=== PATIENT | female | born 1985 | race Hispanic/Latino ===

== ENCOUNTER 2018-02-27 11:07 | Emergency (ER) | payer SELFPAY ==
[2018-02-27 12:51] LABS: Bilirubin Negative (Negative); Blood, Urine Negative (Negative); Clarity CLEAR (Clear); Glucose, Urine (Dipstick) Negative (Negative); Leukocyte Negative (Negative); Nitrite Negative (Negative); Protein, Urine (Dipstick) Negative (Neg-Trace); Specific Gravity, Urine 1.011 (1.002-1.036); Urobilinogen 0.2 mg/dL (0.2-1.0); pH, Urine 7.5 (5.0-9.0)
[2018-02-27 12:52] LABS: #Basophils 0.1 thou/uL (0.0-0.2); #Eosinphils 0.1 thou/uL (0.0-0.7); #Lymphocytes 1.5 thou/uL (1.20-3.40); #Monocytes 0.5 thou/uL (0.11-0.59); #Neutrophils 7.3 thou/uL (1.40-6.50); %Basophils 0.8 % (0.0-1.0); %Eosinophils 0.7 % (0.0-10.0); %Lymphocytes 15.5 % (21.0-51.0); %Monocytes 5.6 % (0.0-10.0); %Neutrophils 77.4 % (42.0-75.0); Hemoglobin 13.5 g/dL (12.0-16.0); Mean Corpuscular HGB CONC 35.9 g/dL (32.0-36.0); Mean Corpuscular Hemoglobin 32.5 pg (27.0-31.0); Mean Corpuscular Volume 90.4 fl (81.0-99.0); Mean Platelet Volume 10.2 fL (7.4-10.4); Platelet Count 170 thou/uL (130-400); RBC Distribution Width 11.8 % (11.5-14.5); Red Blood Cell (RBC) Count 4.17 mill/uL (4.20-5.40); White Blood Cell (WBC) Count 9.4 thou/uL (4.8-10.8)
[2018-02-27 13:03] LABS: ALT (SGPT) 12 U/L (8-55); AST (SGOT) 14 U/L (5-34); Albumin 4.4 g/dL (3.5-5.0); Alkaline Phosphatase 46 U/L (40-150); Anion Gap 9 mmol/L (10-20); BUN (Urea Nitrogen) 8 mg/dL (7.0-18.7); Bilirubin, Total 0.5 mg/dL (0.2-1.2); Calc. Creatinine Clearance 0 mL/min (70-130); Calcium 9.7 mg/dL (7.8-10.44); Carbon Dioxide 25 mmol/L (22-29); Chloride 102 mmol/L (98-107); Estimated GFR-MDRD Greater than 90; Globulin 3.2 g/dL (2.4-3.5); Glucose 85 mg/dL (70-105); Potassium 3.7 mmol/L (3.5-5.1); Protein, Total 7.6 g/dL (6.0-8.3); Sodium 132 mmol/L (136-145)
--- NOTE | 2018-02-27 15:13 | ULT ---
OB ULTRASOUND: Date: 02-27-18 History: Positive , vaginal bleeding. Comparison: None available. FINDINGS: Multiple transabdominal sonographic images of the pelvis are obtained. The uterus measures 8.1 cm x 6.8 cm x 7.5 cm. There is evidence of a single intrauterine gestation. C ardiac doppler does demonstrate heart tones with a heart rate of 158 bpm. The crown rump length measures 2.37 cm, consistent with gestational age by ultrasound of 9 weeks 1 day. Gestational age by last menstrual period is 10 weeks 6 days. There is a tiny curvilinear hypoechoic structure seen in a subchorionic location, lower uterine segme nt, which does not demonstrate flow and likely represents a small subchorionic hemorrhage. A yolk sac is present with in the gestational sac as well. The ovaries demonstrate a normal sonographic appearance bilaterally with the right ovary measuring 2. 7 cm x 1.2 cm x 1.3 cm and the left ovary measurin 2.5 cm x 1.1 cm x 1.6 cm. Doppler evaluation of th e bilateral ovaries with spectral analysis and color flow evaluation demonstrates arterial flow in ea ch ovary. No free fluid is seen in the pelvis. IMPRESSION: 1. Suggestion of a small subchorionic hemorrhage measuring 1 cm in maximal dimensions. 2. Single intrauterine gestation with heart tones documented. Gestational age by measurement of the crown-rump length is 9 weeks 1 day. 3. Findings discussed with Dr. Baumann in the Emergency Department on 02-27-18 at 1357 hours. POS: [facility]
== END 2018-02-27 14:51 | disposition home or self-care (01) ==
LOC: ERS 11:07
DX: O20.0 Threatened abortion (principal); Z3A.09 9 weeks gestation of pregnancy
CPT/HCPCS: 36415; 76815; 80053; 81003; 84702; 85025; 86777; 86778; 86900; 86901; 87480; 87491; 87510; 87591; 87660; 87798

== ENCOUNTER 2018-03-11 15:54 | Emergency (ER) | payer MEDICAID, OTHER, SELFPAY ==
[2018-03-11 16:32] LABS: #Basophils 0.1 thou/uL (0.0-0.2); #Eosinphils 0.1 thou/uL (0.0-0.7); #Lymphocytes 1.7 thou/uL (1.20-3.40); #Monocytes 0.6 thou/uL (0.11-0.59); #Neutrophils 7.4 thou/uL (1.40-6.50); %Basophils 0.6 % (0.0-1.0); %Eosinophils 1.5 % (0.0-10.0); %Lymphocytes 17.2 % (21.0-51.0); %Neutrophils 74.7 % (42.0-75.0); Hemoglobin 12.8 g/dL (12.0-16.0); Mean Corpuscular HGB CONC 35.3 g/dL (32.0-36.0); Mean Corpuscular Hemoglobin 32.3 pg (27.0-31.0); Mean Corpuscular Volume 91.5 fl (81.0-99.0); Mean Platelet Volume 10.2 fL (7.4-10.4); Platelet Count 187 thou/uL (130-400); RBC Distribution Width 11.9 % (11.5-14.5); Red Blood Cell (RBC) Count 3.95 mill/uL (4.20-5.40)
[2018-03-11 16:55] LABS: Anion Gap 12 mmol/L (10-20); BUN (Urea Nitrogen) 8 mg/dL (7.0-18.7); Calc. Creatinine Clearance 0 mL/min (70-130); Calcium 9.3 mg/dL (7.8-10.44); Carbon Dioxide 23 mmol/L (22-29); Chloride 104 mmol/L (98-107); Estimated GFR-MDRD Greater than 90; Glucose 87 mg/dL (70-105); Sodium 135 mmol/L (136-145)
--- NOTE | 2018-03-11 18:43 | ULT ---
LIMITED OBSTETRICAL ULTRASOUND: 03/11/2018 HISTORY: A 32-year-old female, complaining of vaginal bleeding while . COMPARISON: 02/27/2018 TECHNIQUE: Multiplanar paniagua-scale sonographic imaging of the gravid uterus obtained. FINDINGS: The uterus measures up to 9.8 cm x 7.7 cm. A single intrauterine gestation is present. [place]-rump l ength is 4.9 cm, correlating with an 11 week 5 day gestation. heart rate is 168 beats per minute. anatomy cannot be assessed at this time. The right ovary measures in the 2.3 x 3.3 x 1.6 cm range and is grossly unremarkable. The left ovary measures in the 2.3 x 2.9 x 2.1 cm range and contains a 1.3 cm follicle. No free fluid is seen in t he pelvis. IMPRESSION: Grossly unremarkable limited obstetrical ultrasound. POS: [facility]
== END 2018-03-11 18:09 | disposition home or self-care (01) ==
LOC: ERS 15:54
DX: O20.0 Threatened abortion (principal); Z3A.11 11 weeks gestation of pregnancy
CPT/HCPCS: 36415; 76815; 80048; 84702; 85025

== ENCOUNTER 2019-05-01 09:23 | Outpatient (CLI) | payer OTHER ==
--- NOTE | 2019-05-01 11:18 | ULT ---
OB ULTRASOUND: HISTORY: High-risk . FINDINGS: A single live intrauterine gestation is seen with measurements corresponding to an estimated gestatio nal age of 15 weeks 2 days and CHERRIE at 10/21/2019. The estimated weight measures 108 gm or 4 ou nces. This corresponds to 7th percentile by Hadlock criteria. measurements are as follows: BPD 2.97 cm, 15 weeks 3 days HC 11.25 cm, 15 weeks 4 days AC 8.46 cm, 14 weeks 6 days FL 1.62 cm, 14 weeks 6 days heart rate measures 160 b.p.m. Placenta is fundal without evidence of placenta previa. Amniot ic fluid appears adequate. The placenta is cephalic. anatomy: Four-chamber heart and 3-vessel cord are not visualized. Cord insertion, kidneys, bladder, stomach, spine, lips/nose, upper and lower extremities were visualized and demonstrate no definite anoma lies. IMPRESSION: Single live intrauterine of 15 weeks 2 days estimated gestational age and estimated date of delivery at 10/21/2019. POS: [facility]
== END 2019-05-01 09:24 | disposition home or self-care (01) ==
LOC: BICULT 09:23
PROVIDERS: ATTEND Nurse Practitioner
DX: O09.92 Supervision of high risk pregnancy, unspecified, second trimester (principal); Z3A.15 15 weeks gestation of pregnancy
CPT/HCPCS: 76805

== ENCOUNTER 2019-06-11 14:41 | Outpatient (CLI) | payer OTHER ==
--- NOTE | 2019-06-11 16:06 | ULT ---
ULTRASOUND OB FOLLOW-UP: 06/11/19 HISTORY: Follow-up exam. COMPARISON: 05/01/19 FINDINGS: There is a single live intrauterine gestation seen and measurements corresponding to an estimated ges tational age of 21 weeks, 3 days and CHERRIE at 10/19/19. The estimated weight measures 44 grams or 14 oz (38th percentile by Hadlock criteria). measurements are as follows: BPD 5.30 cm 22 weeks, 1 day HC 18.77 cm 21 weeks, 1 day AC 16.56 cm 21 weeks, 5 days FL 3.37 cm 20 weeks, 4 days Cervical length measures 3.3 cm. heart rate measures 139 beats per minute. Placenta is posterio r fundal without evidence of placenta previa. KIRSTIN measures 11 cm. IMPRESSION: Single live IUP of 21 weeks, 3 days estimated gestational age and CHERRIE at 10/19/19. POS: [facility]
== END 2019-06-11 14:42 | disposition home or self-care (01) ==
LOC: BICULT 14:41
DX: O09.92 Supervision of high risk pregnancy, unspecified, second trimester (principal); Z3A.21 21 weeks gestation of pregnancy
CPT/HCPCS: 76816

== ENCOUNTER 2019-08-15 13:38 | Outpatient (CLI) | payer OTHER ==
--- NOTE | 2019-08-15 14:22 | ULT ---
ULTRASOUND OBSTETRICAL COMPLETE: DATE: 08/15/2019 HISTORY: 33-year-old female. Evaluate growth. "O09.293, supervision of with other poor reproductive or obstetric history, third trimester " FINDINGS: number: alfaro lie: Transverse, head to maternal right. Maternal cervix: 3.5 cm. Closed. Placenta: Fundal and anterior. No previa. Amniotic fluid volume: KIRSTIN = 19cm heart rate: 143 bpm The following anatomy is visualized, with no evidence of anomalies: Head, four-chamber heart, stomach, kidneys, cord insertion, bladder, and nose and lips. biometry: Biparietal diameter (BPD): 7.6 cm 30 w 3 d Head circumference (HC): 29.2 cm 32 w 2 d Abdominal circumference (AC): 28.8 cm 32 w 6 d Femur length (FL): 5.9 cm 30 w 5 d Average ultrasound age (AUA): 31 w 4 d Estimated date of delivery (CHERRIE): 10/13/2019 Estimated weight (EFW): 1863 g +/- 272 g IMPRESSION: 1) Live 3rd trimester intrauterine gestation. 2) Estimated gestational age of 31 weeks, 4 days 3) transverse lie.
== END 2019-08-15 13:39 | disposition home or self-care (01) ==
LOC: BICULT 13:38
DX: O09.293 Supervision of pregnancy with other poor reproductive or obstetric history, third trimester (principal); Z3A.31 31 weeks gestation of pregnancy
CPT/HCPCS: 76815

== ENCOUNTER 2019-10-10 05:01 | Inpatient (IN) | payer MEDICAID, SELFPAY ==
[~2019-10-10 05:01] MED LIST: Ondansetron PF 4 MG/2 ML Vial IVP PRN; Promethazine HCl 25 MG/ML VIAL IM PRN; hydrALAZINE 20 MG/ML VIAL SLOW IVP PRN
[2019-10-10] MEDS: Lactated Ringer's 1,000 ML IV SCH ×4 (05:35→17:16)
[2019-10-10 05:48] VITALS: BMI 24.9
[2019-10-10 05:48] LABS: Mean Corpuscular HGB CONC 33.7 g/dL (32.0-36.0); Mean Corpuscular Hemoglobin 26.5 pg (27.0-31.0); Mean Corpuscular Volume 78.5 fL (78.0-98.0); Mean Platelet Volume 12.1 fL (7.4-10.4); Platelet Count 164 thou/uL (130-400); RBC Distribution Width 15.6 % (11.5-14.5); Red Blood Cell (RBC) Count 3.79 mill/uL (4.20-5.40); White Blood Cell (WBC) Count 8.7 thou/uL (4.8-10.8)
[2019-10-10] MEDS ORDERED: Bicitra 30 ML UDCUP PO SCH (06:00)
[2019-10-10] MEDS ORDERED: CEFAZOLIN 2 GM in Premix Bag 1 BAG IVPB SCH (06:00)
[2019-10-10 06:28] LABS: HBSAg Index 0.17 S/CO (0-0.99); Hep B Surf Ag Non-Reactive S/CO (NonReactive)
[2019-10-10 06:42] LABS: Syphilis Antibody Nonreactive (Nonreactive); Syphilis Antibody Index 0.04 S/CO (<1.00 Non-Reactive)
[2019-10-10] MEDS ORDERED: Oxytocin 10 UNITS/ML VIAL ONE (07:30)
[2019-10-10] MEDS ORDERED: MORPHINE 5 MG/10 ML PF VIAL ONE (07:31)
[2019-10-10] MEDS ORDERED: ePHEDrine/0.9% NaCl/PF SYRINGE 50 mg/10 ml ONE (07:44)
[2019-10-10] MEDS ORDERED: PHENYLEPHRINE-NS 100 MCG/ML 10 ML SYRINGE ONE (07:44)
[2019-10-10] MEDS ORDERED: hydrALAZINE 20 MG/ML VIAL SLOW IVP PRN (10:23)
[2019-10-10] MEDS ORDERED: Lanolin Ointment 7 GM TUBE TOP PRN (10:23)
[2019-10-10] MEDS ORDERED: Ondansetron PF 4 MG/2 ML Vial IVP PRN ×2 (10:23→10:52)
[2019-10-10] MEDS ORDERED: HYDROcodone/Acetaminophen 5/325 mg Tablet PO PRN ×2 (10:23)
[2019-10-10] MEDS ORDERED: NS / Oxytocin 40 units/1000ml 1,000 ML IV SCH (10:30)
[2019-10-10] MEDS ORDERED: Naloxone HCl 0.4 mg/ml Vial IV PRN (10:52)
[2019-10-10] MEDS ORDERED: Promethazine HCl 25 MG/ML VIAL IM PRN (10:52)
[2019-10-10] MEDS ORDERED: Promethazine HCl 25 MG SUPP PR PRN (10:52)
[2019-10-10] MEDS ORDERED: Ondansetron HCl/PF 4 MG/2 ML Vial IVP PRN (10:52)
[2019-10-10] MEDS ORDERED: HYDROmorphone 2 MG/ML VIAL SLOW IVP PRN (10:52)
[2019-10-10] MEDS ORDERED: Meperidine HCl/PF 25 MG/ML VIAL SLOW IVP PRN (10:52)
[2019-10-10] MEDS ORDERED: L&D-Morphine 4 MG/ML VIAL SLOW IVP PRN (10:52)
[2019-10-10] MEDS ORDERED: diphenhydrAMINE 50 MG/ML VIAL IVP PRN (10:52)
[2019-10-10] MEDS ORDERED: Naloxone HCl 0.4 mg/ml Vial IVP PRN ×2 (10:52)
[2019-10-10] MEDS ORDERED: Communication Order-Pharmacy FS PRN (11:00)
[2019-10-10] MEDS ORDERED: Ketorolac Tromethamine 30 MG/ML VIAL IVP SCH (11:00)
--- NOTE | 2019-10-10 11:15 | OP ---
DATE OF PROCEDURE: 10/10/2019 PREOPERATIVE DIAGNOSES: 1. A 33-year-old G4, P3-0-0-3 with a history of three previous sections, scheduled for a repeat section. 2. GBS negative. 3. 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 4. Anemia of . POSTOPERATIVE DIAGNOSES: 1. A 33-year-old G4, P3-0-0-3 with a history of three previous sections, scheduled for a repeat section. 2. GBS negative. 3. 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 4. Anemia of . 5. Live-born male weighing 7 pounds 6 ounces with Apgars of 8 and 9 at 1 and 5 minutes respectively. COSMETIC SALES ADVISOR: Dr. Cisneros, resident. ANESTHESIA: Spinal. ESTIMATED BLOOD LOSS: 400 mL. QUANTITATIVE BLOOD LOSS: 390 mL. URINE OUTPUT: 300 mL of clear urine in the Perez catheter. IV FLUIDS: 1 L of crystalloid. CLINICAL HISTORY: This patient is a 33-year-old female, who is a G4, P3-0-0-3, who was seen for routine care at the [facility] without any complications. The patient was noted to have a history of toxoplasmosis which was tested by serum titers and noted to be latent with no evidence of active disease. She also had an upper respiratory infection that led to some costochondritis of her chest a few weeks prior to delivery that resolved by the time of actual delivery. Given the patient's history of three previous sections, she was counseled for the repeat section. The risks, benefits, and possible complications as well as alternatives were discussed. The patient wished to proceed at term. DESCRIPTION OF PROCEDURE: The patient was taken to the operating room, where spinal anesthesia was obtained. She was laid in the supine position with a leftward tilt and her Doptones were obtained. She was prepped and draped in the usual sterile fashion. After testing for adequate anesthesia, an incision was made around the previous incision removing the scar with a scalpel. This incision was then carried down to the fascia. The fascia was nicked in the midline and extended out bilaterally. The Hugo clamps were used x2 to elevate the rectus muscles off the fascia. There was an opening to the peritoneum already noted most likely from lack of closure for her previous sections. The Hugo clamps were then used x2 at the lower edge to elevate the rectus fascia off the rectus and pyramidalis muscles. Once this was performed, the Kochers were transferred back up to the superior edge and the opening that was already present was extended with a combination of sharp and blunt dissection. The pyramidalis muscles were in the midline and then the bladder flap was created with Metzenbaum and Tongan forceps to reduce the bladder lower. The bladder blade was then placed and an incision was made over the lower uterine border in a Pfannenstiel manner to the level of the amnion. The amniotomy was performed with clear fluid. This incision was then extended and the head was delivered through the incision. The anterior shoulder followed by the posterior shoulder followed by the remainder of the 's body was delivered. The cried vigorously and was stimulated and bulb suctioned on the abdomen. The cord was doubly clamped and cut and then sent over to the [facility] for the neonatology team in attendance to delivery to continue care. Cord blood was obtained. The placenta was then delivered manually intact with a three-vessel cord and the uterus was exteriorized and cleansed of all debris. The incision was then closed in a running locking fashion with excellent hemostasis and the bladder flap was reapproximated with a 3-0 Monocryl. The gutters were cleansed of all debris and then Seprafilm was placed over the anterior surface of the uterus. The uterus was again surveyed and noted to be hemostatic and normal anatomy. It was then placed back into the abdomen and the peritoneum and rectus muscles were closed as a single closure layer and excellent hemostasis was noted. The prefascial gutters were cleansed of all debris and Bovie cautery was used to correct any bleeding and then the fascia was closed in a running fashion with excellent hemostasis. The subcutaneous tissues were irrigated and Bovie cautery was used to ligate any oozing capillaries and then 2-0 plain gut was used to reapproximate the subcutaneous tissue. The skin was then closed in a running fashion with a 3-0 Rishi needle with the reapproximation of the skin. This was reinforced with Steri-Strips and Mastisol and a pressure dressing was placed over with a Telfa and fluffs and a Tegaderm. The patient tolerated the procedure well and was able to transfer to the recovery room in satisfactory condition with her . Again, the was a live born male weighing 7 pounds 6 ounces with Apgars of 8 and 9 at 1 and 5 minutes respectively. All needle, sponge, lap, and instrument counts were correct x2 at the end of the procedure. There were no other issues surrounding this delivery. Job ID: [id number]
[2019-10-10] MEDS ORDERED: Ondansetron PF 4 MG/2 ML Vial ONE (11:16)
[2019-10-10] MEDS: Ibuprofen 800 MG TAB PO SCH (15:21)
[2019-10-10] MEDS: Ketorolac Tromethamine 30 MG/ML VIAL IVP PRN (17:26)
[2019-10-11] MEDS: Ketorolac Tromethamine 30 MG/ML VIAL IVP PRN (01:39)
[2019-10-11] MEDS: Ferrous Sulfate 325 MG TAB PO SCH ×3 (01:40→21:40)
[2019-10-11] MEDS: Ibuprofen 800 MG TAB PO SCH ×4 (01:40→21:40)
[2019-10-11 06:47] LABS: Hemoglobin 9.5 g/dL (12.0-16.0); Mean Corpuscular HGB CONC 33.6 g/dL (32.0-36.0); Mean Corpuscular Hemoglobin 26.8 pg (27.0-31.0); Mean Corpuscular Volume 79.8 fL (78.0-98.0); Mean Platelet Volume 11.3 fL (7.4-10.4); Platelet Count 135 thou/uL (130-400); RBC Distribution Width 15.7 % (11.5-14.5); Red Blood Cell (RBC) Count 3.54 mill/uL (4.20-5.40); White Blood Cell (WBC) Count 8.9 thou/uL (4.8-10.8)
[2019-10-11] MEDS: Prenatal Vitamin 1 TAB PO SCH (08:01)
[2019-10-11] MEDS: Docusate Calcium (SURFAK) 240 MG CAP PO PRN ×2 (08:02→21:40)
[2019-10-11] MEDS: Lactated Ringer's 1,000 ML IV SCH ×2 (08:36→08:37)
[2019-10-11] MEDS ORDERED: Adacel (T-DAP) 0.5 ML SYRINGE IM ONE (10:23)
[2019-10-11] MEDS: Simethicone Chewable 80 MG TAB PO PRN ×2 (11:22→21:40)
[2019-10-11] MEDS ORDERED: HYDROcodone/Acetaminophen 5/325 mg Tablet PO PRN (19:16)
[2019-10-12] MEDS: Lactated Ringer's 1,000 ML IV SCH (04:56)
[2019-10-12] MEDS: Ibuprofen 800 MG TAB PO SCH (05:46)
[2019-10-12 08:37] VITALS: BP 98/50; TEMP 98.1
[2019-10-12] MEDS: Ferrous Sulfate 325 MG TAB PO SCH (09:01)
[2019-10-12] MEDS: Prenatal Vitamin 1 TAB PO SCH (09:01)
--- NOTE | 2019-10-14 00:06 | PQF ---
Nuvia VelaBELKIS [id number] CLINICAL DOCUMENTATION CLARIFICATION FORM: POST DISCHARGE Addendum to original discharge summary date: ____ Late entry note date: __ DATE: 10/14/19 ATTN: Belkis Funes Please exercise your independent, professional judgment in responding to the clarification form. Clinical indicators are provided on the bottom of this form for your review Please check appropriate box(s): [ ] Acute blood loss anemia [ ] Post-op anemia related to acute blood loss [ x] Chronic Anemia: [ ] Blood loss [ ] Hemolytic [ x] Simple [ ] Due to Vitamin B12 Deficiency [ x] Other Anemia of pregnancy____ [ ] Other diagnosis [ ] Unable to determine In addition, please specify: Present on Admission (POA): [ x] Yes [ ] No [ ] Unable to determine For continuity of documentation, please document condition throughout progress notes and discharge summary. Thank You. CLINICAL INDICATORS - SIGNS / SYMPTOMS / LABS Laboratory Hematology 10/10 Hgb 10.0, Hct 29.7 Laboratory Hematology 10/11 Hgb 9.5, Hct 28.2 Operative report p1 10/10 Estimated blood loss 400ml Operative report p1 10/10 Quantitative blood loss 390ml RISK FACTORS Operative report p1 10/10 33 year-old G4, P3-0-0-3 Operative report p1 10/10 Anemia of TREATMENTS: Operative report p1 10/10 1L of Crystalloid MAR 10/11 Ferrous Sulfate 325mg if Hgb <10 gms (This form is maintained as a part of the permanent medical record) 2014 [employer]. All Rights Reserved [email or web address] [not provided] [email or web address]
== END 2019-10-12 14:37 | disposition home or self-care (01) | DRG 788 ==
LOC: L&D-LIB 05:01 → 3SW 12:45
PROVIDERS: ADMIT Obstetrics & Gynecology; ATTEND Obstetrics & Gynecology
PROC: 10D00Z1 Extraction of Products of Conception, Low, Open Approach (ICD-10-PCS; principal; 2019-10-10)
DX: O34.211 Maternal care for low transverse scar from previous cesarean delivery (principal); Z37.0 Single live birth; Z3A.38 38 weeks gestation of pregnancy; O99.02 Anemia complicating childbirth; D64.9 Anemia, unspecified; Z86.19 Personal history of other infectious and parasitic diseases
CPT/HCPCS: 36415; 51702; 85027; 86780; 86850; 86900; 86901; 87340; 88307; J0690; J1885; J2274; J2405; J2590